=== PATIENT | male | born 2000 | race African-American/Black ===

== ENCOUNTER 2024-07-19 15:02 | Emergency (ER) | payer MEDICARE, MEDICAID ==
[~2024-07-19] VITALS: Ht 177.8 cm; Wt 105.0 kg
[2024-07-19 15:04] VITALS: O2SAT 100
[2024-07-19] MEDS: OLANZAPINE 5MG TABLET ODT PO ONE (17:01)
[2024-07-19 19:14] VITALS: BP 121/80; PULSE 70; RESP 18; TEMP 36.7; O2SAT 100
== END 2024-07-19 19:15 | disposition home or self-care (01) ==
LOC: ER 15:02
DX: F98.9 Unspecified behavioral and emotional disorders with onset usually occurring in childhood and adolescence (principal)
CPT/HCPCS: 99283